=== PATIENT | female | born 1985 | race Caucasian/White ===

== ENCOUNTER 2017-03-11 09:13 | Day surgery (SDC) | payer OTHER ==
[~2017-03-11] VITALS: Ht 172.7 cm; Wt 70.2 kg
[~2017-03-11 09:13] MED LIST: BIRTH CONTROL; CIPRO500 MG PO; IBUPROFEN800 MG PO; MICRONOR0.35 MG PO; MOTRIN800 MG PO; Micronor,Nor-Q-D,Err PO; Motrin PO; PERCOCET 5/31 TABLET PO; PRENATAL TABLE1 EAC3 PO; PRENATAL1 EACH PO; REGLAN5 MG PO; ZOFRAN ODT4 MG PO; ZOFRAN4 MG PO
[2017-03-11 09:57] VITALS: BP 104/64
[2017-03-11 10:04] LABS: HEMATOCRIT 39.8 % (36.0-46.0); MCV 96.4 FL (83-99)
[2017-03-11] MEDS ORDERED: MOTRIN800 MG PO (11:39)
[2017-03-11] MEDS ORDERED: MONODOX100 MG PO (11:39)
[2017-03-11 13:20] VITALS: BP 114/40
[2017-03-11 14:04] VITALS: BP 110/54
== END 2017-03-11 14:20 | disposition home or self-care (01) ==
LOC: SDC 09:13
PROVIDERS: Obstetrics & Gynecology
PROC: 10D17ZZ Extraction of Products of Conception, Retained, Via Natural or Artificial Opening (ICD-10-PCS; principal; 2017-03-11)
DX: O02.1 Missed abortion (principal); Z82.49 Family history of ischemic heart disease and other diseases of the circulatory system; Z80.1 Family history of malignant neoplasm of trachea, bronchus and lung; Z80.8 Family history of malignant neoplasm of other organs or systems
CPT/HCPCS: 85014; 85018; 86900; 86901; 88305; J1100; J1885; J2250; J2405; J3010

== ENCOUNTER 2017-06-08 10:04 | Day surgery (SDC) | payer OTHER ==
[~2017-06-08] VITALS: Ht 172.7 cm; Wt 72.7 kg
[~2017-06-08 10:04] MED LIST changes: +MONODOX100 MG PO
[2017-06-08 10:22] VITALS: BP 126/60
[2017-06-08 11:05] LABS: EOSINOPHIL (%) 2.2 % (0-5); EOSINOPHIL COUNT 0.1 K/uL (0-0.3); IMMATURE GRANULOCYTE (%) 0.2 % (0.0-0.7); INSTRUMENT ABS NEUTROPHIL CT 2.7 K/uL; LYMPHOCYTE COUNT 1.9 K/uL (1.0-2.8); MCH 33.3 PG (29.0-34.0); MCHC 35.9 G/DL (30.0-36.0); MCV 92.8 FL (83-99); MEAN PLAT.VOLUME 10.8 uM^3 (9.5-12.4); MONOCYTE (%) 6.7 % (3-12); MONOCYTE COUNT 0.3 K/uL (0-0.8); NEUTROPHIL (%) 53.1 % (45-76); NEUTROPHIL COUNT 2.7 K/uL (1.8-6.4); PLATELET COUNT 229 K/uL (156-360); RBC DIS.WIDTH-CV 11.9 % (11.8-14.6); RBC DIS.WIDTH-SD 40.4 % (39-53); RED BLOOD COUNT 3.45 M/uL (3.80-5.20); WHITE BLOOD COUNT 5.1 K/uL (4.1-10.2)
[2017-06-08] MEDS ORDERED: MONODOX100 MG PO (11:45)
[2017-06-08 12:58] VITALS: BP 88/32
[2017-06-08 14:00] VITALS: BP 93/38
== END 2017-06-08 14:18 | disposition home or self-care (01) ==
LOC: SDC 10:04
PROVIDERS: Obstetrics & Gynecology
PROC: 10D17ZZ Extraction of Products of Conception, Retained, Via Natural or Artificial Opening (ICD-10-PCS; principal; 2017-06-08)
DX: O03.4 Incomplete spontaneous abortion without complication (principal); Z3A.11 11 weeks gestation of pregnancy
CPT/HCPCS: 85025; 86850; 86900; 86901; 88305; J1100; J1885; J2210; J2250; J2405; J2590; J3010